=== PATIENT | male | born 1950 | race Caucasian/White ===

== ENCOUNTER 2017-05-01 20:16 | Inpatient (IN) | payer OTHER, MEDICARE ==
[2017-05-01] MEDS: ASPIRIN 325 MG TAB PO (21:31)
[2017-05-01] MEDS: METHYLPREDNISOLONE 125 MG INJ IV (21:32)
[2017-05-01] MEDS: morphine 4 MG/ML VIAL IV ×2 (21:32→22:50)
[2017-05-01] MEDS: ONDANSETRON 4 MG INJ IV (21:32)
[2017-05-01 21:54] LABS: ADD MAN DIFF? NO
[2017-05-01 21:57] LABS: WHITE BLOOD COUNT 6.2 10^3/ul (4.8-10.8)
[2017-05-01 21:57] LABS: BASOPHILS % 0.2 % (0.0-2.0); EOSINOPHILS # 0.1 10^3/ul (0.0-0.5); HEMATOCRIT 34.2 % (42.0-52.0); HEMOGLOBIN 11.6 g/dl (14.0-18.0); LYMPHOCYTES # 1.2 10^3/ul (0.8-2.9); LYMPHOCYTES % 18.5 % (15.0-51.0); MEAN CORPUSCULAR HEMOGLOBIN 31.1 pg (29.0-33.0); MEAN CORPUSCULAR HGB CONC 33.9 g/dl (32.0-37.0); MEAN CORPUSCULAR VOLUME 91.7 fl (82.0-101.0); MEAN PLATELET VOLUME 9.9 fl (7.4-10.4); MONOCYTE # 0.3 10^3/ul (0.3-0.9); MONOCYTES % 4.7 % (0.0-11.0); NEUTROPHIL # 4.6 10^3/ul (1.6-7.5); NEUTROPHILS % 74.5 % (39.0-77.0); PLATELET COUNT 206 10^3/UL (140-415); RED BLOOD COUNT 3.73 10^6/ul (4.70-6.10); RED CELL DISTRIBUTION WIDTH 13.9 % (11.5-14.5)
[2017-05-01 22:14] LABS: ALANINE AMINOTRANSFERASE 62 IU/L (13-69); ALBUMIN 3.6 g/dl (3.3-4.9); ALBUMIN/GLOBULIN RATIO 1.56; ALKALINE PHOSPHATASE 61 IU/L (42-121); ANION GAP 16 (8-16); ASPARTATE AMINO TRANSFERASE 23 IU/L (15-46); BILIRUBIN,INDIRECT 0.4 mg/dl (0-1.1); BILIRUBIN,TOTAL 0.4 mg/dl (0.2-1.3); BLOOD UREA NITROGEN 16 mg/dl (7-20); CALCIUM 8.3 mg/dl (8.4-10.2); CARBON DIOXIDE 26 mmol/L (21-31); CHLORIDE 102 mmol/L (97-110); CREATINE KINASE 44 IU/L (23-200); GLUCOSE 169 mg/dl (70-220); POTASSIUM 3.5 mmol/L (3.5-5.1); SODIUM 140 mmol/L (135-144); TOTAL PROTEIN 5.9 g/dl (6.1-8.1)
[2017-05-01 22:24] LABS: INR 1.06; PROTIME 13.9 Sec (11.9-14.9); PT RATIO 1.1
[2017-05-01 22:25] LABS: PARTIAL THROMBOPLASTIN TIME 29.2 Sec (25.0-35.0)
[2017-05-01 22:26] LABS: B-TYPE NATRIURETIC PEPTIDE 1570 PG/ML (0-125); CK INDEX 5.3; CK-MB 2.35 ng/ml (0.0-2.4); TROPONIN-I 0.054 ng/ml (0.00-0.12)
[2017-05-01] MEDS: ALBUTEROL 0.5% (NEB) 2.5 MG/0.5 ML AMP INH (23:55)
[2017-05-01] MEDS: IPRATROPIUM (NEB) 0.5 MG/2.5 ML AMP INH (23:55)
[2017-05-02] MEDS: SOD CHLORIDE 0.9% 10 ML IV (02:40)
[2017-05-02] MEDS ORDERED: morphine 2 MG INJ IV (03:00)
[2017-05-02] MEDS ORDERED: NACL 0.9% 3 ML SYG IV (03:00)
[2017-05-02] MEDS ORDERED: HYDROCODONE/APAP (5/325) TAB PO (03:00)
[2017-05-02] MEDS ORDERED: ACETAMINOPHEN 325 MG TAB PO (03:00)
[2017-05-02] MEDS ORDERED: DOCUSATE SODIUM 100 MG CAP PO (03:00)
[2017-05-02] MEDS ORDERED: BISACODYL 10 MG SUPP PR (03:00)
[2017-05-02] MEDS ORDERED: ONDANSETRON 4 MG INJ IV ×2 (03:00)
[2017-05-02] MEDS ORDERED: IPRATROPIUM (NEB) 0.5 MG/2.5 ML AMP NEB (03:00)
[2017-05-02 03:49] LABS: ADD MAN DIFF? NO
[2017-05-02 04:11] LABS: ABNORMAL IP MESSAGE 1; EOSINOPHILS % 0.2 % (0.0-7.0); HEMATOCRIT 32.7 % (42.0-52.0); HEMOGLOBIN 10.9 g/dl (14.0-18.0); LYMPHOCYTES # 0.5 10^3/ul (0.8-2.9); LYMPHOCYTES % 9.7 % (15.0-51.0); MEAN CORPUSCULAR HEMOGLOBIN 31.1 pg (29.0-33.0); MEAN CORPUSCULAR HGB CONC 33.3 g/dl (32.0-37.0); MEAN CORPUSCULAR VOLUME 93.2 fl (82.0-101.0); MEAN PLATELET VOLUME 10.1 fl (7.4-10.4); MONOCYTE # 0.1 10^3/ul (0.3-0.9); MONOCYTES % 1.4 % (0.0-11.0); NEUTROPHIL # 4.2 10^3/ul (1.6-7.5); NEUTROPHILS % 87.5 % (39.0-77.0); PLATELET COUNT 187 10^3/UL (140-415); POSITIVE DIFF @See below; RED BLOOD COUNT 3.51 10^6/ul (4.70-6.10); RED CELL DISTRIBUTION WIDTH 13.8 % (11.5-14.5)
[2017-05-02 04:11] LABS: WHITE BLOOD COUNT 4.8 10^3/ul (4.8-10.8)
[2017-05-02] MEDS: METHYLPREDNISOLONE 125 MG INJ IV ×3 (04:13→11:42)
[2017-05-02] MEDS: MAGNESIUM SULFATE 2 GM/50 ML 50 ML IVPB (04:13)
[2017-05-02 04:14] LABS: CREATINE KINASE 36 IU/L (23-200)
[2017-05-02 04:27] LABS: CK INDEX 5.5; TROPONIN-I 0.042 ng/ml (0.00-0.12)
[2017-05-02] MEDS: morphine 2 MG INJ IV ×3 (04:39→14:44)
[2017-05-02 04:55] LABS: CK-MB 1.97 ng/ml (0.0-2.4)
[2017-05-02] MEDS: ALBUTEROL/IPRATROPIUM (NEB) 3 ML AMP NEB ×2 (05:22→08:53)
[2017-05-02 05:31] LABS: B-TYPE NATRIURETIC PEPTIDE 1020 PG/ML (0-125)
[2017-05-02] MEDS: BUMETANIDE 0.5 MG TAB PO (06:15)
[2017-05-02] MEDS: INSULIN ASPART [NOVOLOG] 3 ML PEN SC ×3 (08:00→11:46)
[2017-05-02 08:20] LABS: ADD UMIC YES; UR ASCORBIC ACID 40 mg/dL (NEGATIVE); UR BACTERIA FEW /HPF (NONE SEEN); UR BILIRUBIN (Dip) NEGATIVE (NEGATIVE); UR BLOOD (Dip) NEGATIVE (NEGATIVE); UR CLARITY CLEAR (CLEAR); UR COLOR AMBER (YELLOW); UR GLUCOSE (Dip) 3+ mg/dL (NEGATIVE); UR KETONES (Dip) TRACE mg/dL (NEGATIVE); UR LEUKOCYTE ESTERASE (Dip) NEGATIVE Leu/ul (NEGATIVE); UR MUCUS MANY /HPF (NONE SEEN); UR NITRITE (Dip) NEGATIVE (NEGATIVE); UR RBC 9 /HPF (0-5); UR SPECIFIC GRAVITY (Dip) 1.021 (1.003-1.030); UR TOTAL PROTEIN (Dip) 2+ mg/dl (NEGATIVE); UR UROBILINOGEN (Dip) 2+ mg/dL (NEGATIVE); UR WBC 2 /HPF (0-5)
[2017-05-02] MEDS: SALMETEROL/FLUTICASONE 250/50 INHA INH (08:28)
[2017-05-02] MEDS: ASPIRIN (EC) 325 MG TAB PO (08:28)
[2017-05-02] MEDS: ISOSORBIDE MONONITRATE(SR)30 MG TAB PO (08:29)
[2017-05-02] MEDS: SENNA/DOCUSATE NA (8.6MG/50MG) TAB PO (08:31)
[2017-05-02] MEDS: RANOLAZINE (SR) 500 MG TAB PO (08:33)
[2017-05-02] MEDS: FAMOTIDINE 20 MG TAB PO (08:40)
[2017-05-02] MEDS: AZITHROMYCIN 250 MG TAB PO (08:40)
[2017-05-02] MEDS: ENOXAPARIN 40 MG/0.4 ML SYG SC (08:41)
[2017-05-02 08:52] LABS: AMPHETAMINE/METHAMPHETAMINE Negative (NEGATIVE); BARBITURATES Negative (NEGATIVE); BENZODIAZEPINES Negative (NEGATIVE); CANNABINOIDS Positive (NEGATIVE); COCAINE Negative (NEGATIVE); OPIATES Positive (NEGATIVE)
[2017-05-02] MEDS ORDERED: ALBUTEROL/IPRATROPIUM (NEB) 3 ML AMP HHN (09:30)
[2017-05-02] MEDS: TIOTROPIUM 18 MCG CAPSULE INHA DEV INH (09:30)
[2017-05-02] MEDS: morphine (ER) 30 MG TAB PO (09:32)
[2017-05-02 09:39] LABS: TROPONIN-I 0.038 ng/ml (0.00-0.12)
[2017-05-02 09:41] LABS: CK INDEX 7.5; CREATINE KINASE 36 IU/L (23-200)
[2017-05-02] MEDS: LEVALBUTEROL (NEB) 0.63 MG/3 ML AMP HHN (16:01)
[2017-05-02 16:11] LABS: CREATINE KINASE 41 IU/L (23-200)
[2017-05-02 16:23] LABS: CK INDEX 6.8
[2017-05-02 16:36] LABS: CK-MB 2.78 ng/ml (0.0-2.4)
[2017-05-02] MEDS ORDERED: ATORVASTATIN 40 MG TAB PO (21:00)
[2017-05-02] MEDS ORDERED: MONTELUKAST 10 MG TAB PO (21:00)
== END 2017-05-02 17:23 | disposition home health service (06) | DRG 302 ==
LOC: TEL 23:28 → E/R 20:16
DX: I25.119 Atherosclerotic heart disease of native coronary artery with unspecified angina pectoris (principal); I50.43 Acute on chronic combined systolic (congestive) and diastolic (congestive) heart failure; Z99.81 Dependence on supplemental oxygen; F11.20 Opioid dependence, uncomplicated; J44.9 Chronic obstructive pulmonary disease, unspecified; Z68.41 Body mass index [BMI] 40.0-44.9, adult; I11.0 Hypertensive heart disease with heart failure; Z72.0 Tobacco use; G89.29 Other chronic pain; E66.01 Morbid (severe) obesity due to excess calories; E78.5 Hyperlipidemia, unspecified; Z95.1 Presence of aortocoronary bypass graft; I25.2 Old myocardial infarction
CPT/HCPCS: 36415; 71045; 80053; 80307; 81001; 82550; 82553; 82962; 83880; 84484; 85025; 85610; 85730; 87400; 93005; 94640; 94644; 94664; 96372; 96374; 96375; 96376; 99285-25